=== PATIENT | female | born 2000 | race American Indian/Alaskan Native ===

== ENCOUNTER 2022-03-14 19:01 | Emergency (ER) | payer BC ==
[2022-03-14 21:21] LABS: CORONAVIRUS COVID-19 NAA NEGATIVE (NEGATIVE); RESPIRATORY SYNCYTIAL VIR NAA NEGATIVE (NEGATIVE)
[2022-03-14] MEDS ORDERED: Penicillin G Benzathine/Procaine 600-600 1.2 Millunits/2 ML Syringe IM ONE (21:38)
[2022-03-14] MEDS ORDERED: Ketorolac 30 MG/ML SDV IM ONE (21:38)
== END 2022-03-14 22:20 | disposition home or self-care (01) ==
LOC: DL.ED 19:01
DX: J02.0 Streptococcal pharyngitis (principal); Z20.822 Contact with and (suspected) exposure to COVID-19
CPT/HCPCS: 0241U; 87430; 96372; 99283; J0558; J1885

== ENCOUNTER 2023-01-11 00:18 | Inpatient (IN) | payer BC ==
[~2023-01-11 00:18] MED LIST: Acetaminophen 325 MG Tab PO PRN; Carboprost Tromethamine 250 MCG/1 ML Amp IM PRN; Lactated Ringers 1,000 ML IV ONE; Lactated Ringers 1,000 ML IV SCH; Lidocaine 1% 30 ML SDV INJECT ONE; Methylergonovine 0.2 MG/1 ML Amp IM PRN; Misoprostol 25 MCG (1/4 of 100 MCG) Tab VAG PRN; Misoprostol 400 MCG (4 X 100 MCG TAB) RECTAL PRN; Misoprostol 50 MCG (1/2 of 100 MCG) Tab VAG ONE; Ondansetron 4 MG/2 ML SDV IVPUSH PRN; Sodium Chloride 0.9% 10 ML Syringe FLUSH PRN; Tranexamic Acid 1,000 MG in Sodium Chloride 0.9% 100 ML IV PRN; fentaNYL 100 MCG/2 ML SDV IVPUSH PRN
[2023-01-11 00:47] LABS: HEMATOCRIT 27.5 % (37.0-47.0); HEMOGLOBIN 8.8 g/dL (12.0-16.0); MEAN CORPUSCULAR HEMOGLOBIN 24.4 pg (27.0-34.0); MEAN CORPUSCULAR VOLUME 76.2 fL (80-100); RED BLOOD CELL COUNT 3.61 10^6/uL (4.2-5.4)
[2023-01-11] MEDS ORDERED: fentaNYL 100 MCG/2 ML SDV IV ONE (05:17)
[2023-01-11] MEDS ORDERED: fentaNYL 100 MCG/2 ML SDV ONE (05:17)
[2023-01-11] MEDS ORDERED: Bupivacaine 0.25% 10 ML SDV EPIDUR ONE (05:17)
[2023-01-11] MEDS ORDERED: Bupivacaine 0.25% 10 ML SDV ONE (05:17)
[2023-01-11] MEDS ORDERED: Ropivacaine 200 MG in Premix Bag 1 BAG EPIDUR SCH ×2 (05:31→06:15)
[2023-01-11] MEDS ORDERED: Phenylephrine HCl In 0.9% NaCl 1 MG/10 ML Syringe IVPUSH PRN (06:12)
[2023-01-11] MEDS ORDERED: ePHEDrine 50 MG/ML SDV IVPUSH PRN (06:12)
[2023-01-11] MEDS: Oxytocin/Normal Saline 30 UNIT/500 ML BAG IV SCH ×2 (10:41→13:44)
[2023-01-11] MEDS ORDERED: Docusate Sodium 100 MG Cap PO PRN (11:27)
[2023-01-11] MEDS ORDERED: Simethicone 80 MG Tab.Chew PO PRN (11:27)
[2023-01-11] MEDS ORDERED: Methylergonovine 0.2 MG Tab PO PRN (11:27)
[2023-01-11] MEDS ORDERED: Acetaminophen 325 MG Tab PO PRN (11:27)
[2023-01-11] MEDS ORDERED: Oxytocin 10 Units/1 ML SDV IM PRN (11:27)
[2023-01-11] MEDS ORDERED: Benzocaine/Menthol 20%-0.5% Spray 78 GM Cannister TOP PRN (11:27)
[2023-01-11] MEDS: Ibuprofen 800 MG Tab PO PRN (11:47)
[2023-01-12] MEDS: Ibuprofen 800 MG Tab PO PRN ×2 (01:13→09:08)
[2023-01-12 06:30] LABS: HEMATOCRIT 24.9 % (37.0-47.0); HEMOGLOBIN 8.1 g/dL (12.0-16.0); MEAN CORPUSCULAR HEMOGLOBIN 25.1 pg (27.0-34.0); MEAN CORPUSCULAR HGB CONC 32.5 g/dL (33.0-35.0); MEAN CORPUSCULAR VOLUME 77.1 fL (80-100); RED BLOOD CELL COUNT 3.23 10^6/uL (4.2-5.4); WHITE BLOOD CELL COUNT,WBC 12.3 10^3/uL (5.0-10.0)
[2023-01-12] MEDS ORDERED: Prenatal Multivitamin with Calcium/Folic Acid/Iron Tab PO SCH (09:00)
[2023-01-12] MEDS ORDERED: Measles, Mumps & Rubella Vaccine 0.5 ML SDV SUBCUT ONE (14:56)
== END 2023-01-12 15:10 | disposition home or self-care (01) | DRG 560 ==
LOC: DL.OBCHECK 00:18 → DL.OB 00:21 → OBSVTOIN 11:13 → UNDODISIN 01-12 15:10
PROVIDERS: ADMIT Family Medicine; ATTEND Family Medicine
PROC: 10E0XZZ Delivery of Products of Conception, External Approach (ICD-10-PCS; principal; 2023-01-11)
PROC: 10907ZC Drainage of Amniotic Fluid, Therapeutic from Products of Conception, Via Natural or Artificial Opening (ICD-10-PCS; 2023-01-11)
PROC: 3E0P7VZ Introduction of Hormone into Female Reproductive, Via Natural or Artificial Opening (ICD-10-PCS; 2023-01-11)
PROC: 3E0R3BZ Introduction of Anesthetic Agent into Spinal Canal, Percutaneous Approach (ICD-10-PCS; 2023-01-11)
PROC: 00HU33Z Insertion of Infusion Device into Spinal Canal, Percutaneous Approach (ICD-10-PCS; 2023-01-11)
DX: O99.02 Anemia complicating childbirth (principal); Z3A.39 39 weeks gestation of pregnancy; Z79.82 Long term (current) use of aspirin; Z79.899 Other long term (current) drug therapy; Z87.59 Personal history of other complications of pregnancy, childbirth and the puerperium; Z28.39 Other underimmunization status; Z37.0 Single live birth
CPT/HCPCS: 01967; 36415; 51701; 59409; 85027; 90471; 90707; A9270-GY; G0010; J2405; J2590; J2795; J3010; J3490; J7120

== ENCOUNTER 2024-05-25 01:03 | Emergency (ER) | payer BC ==
[2024-05-25 01:26] LABS: BASOPHILS PERCENT AUTO 0.1 % (0.0-1.0); EOSINOPHILS PERCENT AUTO 2.4 % (1.0-3.0); HEMATOCRIT 27.4 % (37.0-47.0); HEMOGLOBIN 8.4 g/dL (12.0-16.0); LYMPHOCYTES PERCENT AUTO 11.9 % (20.5-50.1); MEAN CORPUSCULAR HEMOGLOBIN 25.1 pg (27.0-34.0); MEAN CORPUSCULAR HGB CONC 30.7 g/dL (33.0-35.0); MONOCYTES PERCENT AUTO 6.7 % (2-8); NEUTROPHILS PERCENT AUTO 78.9 % (42.2-75.2); PLATELET COUNT,PLT 272 10^3/uL (150-450); RED BLOOD CELL COUNT 3.34 10^6/uL (4.2-5.4); WHITE BLOOD CELL COUNT,WBC 9.4 10^3/uL (5.0-10.0)
[2024-05-25 01:34] LABS: APPEARANCE,URINE CLOUDY (CLEAR); BILIRUBIN,URINE SMALL (NEGATIVE); COLOR,URINE DARK YELLOW (YELLOW); GLUCOSE,URINE NEGATIVE (NEGATIVE); KETONES,URINE TRACE (NEGATIVE); LEUKOCYTE ESTERASE,URINE SMALL (NEGATIVE); NITRITE,URINE NEGATIVE (NEGATIVE); OCCULT BLOOD,URINE LARGE (NEGATIVE); PROTEIN,URINE 100 (NEGATIVE)
[2024-05-25 01:42] LABS: AMORPHOUS SEDIMENT,URINE MODERATE /HPF (NOT SEEN); BACTERIA,URINE MODERATE /HPF (0-FEW/HPF); EPITHELIAL CELLS,URINE MODERATE /HPF (NOT SEEN); MUCUS,URINE MODERATE /LPF (NOT SEEN); RBC,URINE SEMI-PACKED /HPF (0-5); WBC,URINE 40-50 /HPF (0-5/HPF)
[2024-05-25 01:44] LABS: ALBUMIN 2.4 g/dL (3.4-5.0); ANION GAP 12.8 mEq/L (7-13); BILIRUBIN TOTAL 0.3 mg/dL (0.2-1.0); BUN/CREATININE RATIO 16.7 (No establ ref range); CALCIUM 8.2 mg/dL (8.5-10.1); CREATININE 0.72 mg/dL (0.55-1.02); EST CRCL DRUG DOSING (CG) 104.94 mL/min; POTASSIUM,K 3.8 mmol/L (3.5-5.1); PROTEIN TOTAL,TP 6.4 g/dL (6.4-8.2)
[2024-05-25 01:45] LABS: A/G RATIO 0.6
== END 2024-05-25 02:04 | disposition home or self-care (01) ==
LOC: DL.ED 01:03
DX: O90.89 Other complications of the puerperium, not elsewhere classified (principal); R60.0 Localized edema
CPT/HCPCS: 36415; 80053; 81001; 85025; 87086; 99283; 99284